=== PATIENT | male | born 1955 | race Caucasian/White ===

== ENCOUNTER 2019-02-21 05:25 | Day surgery (SDC) | payer OTHER ==
[~2019-02-21] VITALS: Ht 165.1 cm; Wt 71.9 kg
[2019-02-21] VITALS (12 sets, daily range): BP systolic 116–150; BP diastolic 69–97; PULSE 48–62; RESP 16–25; Ht 165.1 cm; Wt 71.9 kg
[2019-02-21] MEDS ORDERED: ASPI81TA52 PO (06:56)
[2019-02-21] MEDS ORDERED: LISI-313 PO (06:56)
[2019-02-21] MEDS ORDERED: ATOR-2 PO (06:57)
[2019-02-21] MEDS ORDERED: METO-448 PO (06:57)
[2019-02-21] MEDS ORDERED: SOD CHLORIDE 0.45% 1,000 ML IV ONE (07:00)
[2019-02-21] MEDS ORDERED: DIAZEPAM 5 MG TAB PO ONE (07:00)
[2019-02-21] MEDS ORDERED: DIPHENHYDRAMINE 50 MG CAP PO ONE (07:00)
[2019-02-21] MEDS ORDERED: POLYMYXIN/BACITRACIN 1L IRRIG ONE (07:05)
[2019-02-21] MEDS ORDERED: CEFAZOLIN 2 GM/50 ML (PMX) 50 ML IVPB ONE (07:05)
[2019-02-21] MEDS ORDERED: MIDAZOLAM 1 MG/ML 2 ML INJ ONE (07:22)
[2019-02-21] MEDS ORDERED: LIDOCAINE 1% (MDV) 20 ML INJ ONE (07:22)
[2019-02-21] MEDS ORDERED: FENTAnyl 50 MCG/ML VIAL ONE ×2 (07:22→07:45)
[2019-02-21] MEDS ORDERED: IOHEXOL 350MG/ML 50 ML BTL ONE (07:26)
--- NOTE | 2019-02-21 07:35 | PREAC ---
Date/Time of Note Date/Time of Note DATE: 02/21/19 TIME: 07:33 Anesthesia Eval and Record Evaluation Time Pre-Procedure Interview DATE: 02/21/19 TIME: 07:33 Age 63 Sex male NPO: 8 hrs Preoperative diagnosis cardiomyopathy Planned procedure AICD placement Past Medical History Past Medical History: Includes Cardio: HTN, Dyslipidemia, [place], PTCA/Stent Surgery & Anesthesia Issues No known issue Meds Anticoagulation: Yes Beta Doris within 24 hr: Yes Reported Medications Atorvastatin* (Atorvastatin*) 80 Mg Tablet, 80 MG PO QHS, #30 TAB 02/21/19 Metoprolol Tartrate* (Lopressor*) 25 Mg Tab, 25 MG PO BID, #60 TAB 02/21/19 Lisinopril* (Lisinopril*) 5 Mg Tablet, 5 MG PO DAILY, #30 TAB 02/21/19 Aspirin (Low Dose Aspirin) 81 Mg Tablet.dr, 81 MG PO DAILY, #30 TAB 02/21/19 Current Medications Sodium Chloride 1,000 ml @ 75 mls/hr [id number] ONCE IV ; Start 02/21/19 at 07:00; Stop 02/21/19 at 20:19 Meds reviewed: Yes Allergies Coded Allergies: No Known Allergies (Verified Allergy, Unknown, 02/21/19) Allergies Reviewed: Yes Labs/Studies Labs Reviewed: Reviewed by anesthesiologist test: N/A Studies: ECG (sr), CXR (n/a) Pre-procedure Exam Airway: Adequate mouth opening Mallampati: Mallampati I Teeth: Normal Lung: Normal Heart: Normal ASA Physical Status ASA physical status: 2 Emergency: None Planned Anesthetic General/MAC: MAC, TIVA Pre-operative Attestations Prior to commencing anesthesia and surgery, the patient was re-evaluated, there was verification of: *The patient's identity *The results of appropriate recent lab work and preoperative vital signs *The above evaluation not changing prior to induction *Anesthetic plan, risk benefits, alternative and complications discussed with patient/family; questions answered; patient/family understands, accepts and wishes to proceed. LIO CARMONA MD February 21, 2019 07:35
[2019-02-21] MEDS ORDERED: PROPOFOL 0 ML ONE (07:45)
[2019-02-21] MEDS ORDERED: DIPHENHYDRAMINE 50 MG INJ IV PRN (08:00)
[2019-02-21] MEDS ORDERED: HYDROmorphONE 1 MG/5 ML IV SYRINGE IV PRN ×3 (08:00)
[2019-02-21] MEDS ORDERED: LABETALOL HCL 20MG INJ IV PRN (08:00)
[2019-02-21] MEDS ORDERED: hydrALAzine 20 MG INJ IV PRN (08:00)
[2019-02-21] MEDS ORDERED: ONDANSETRON 4 MG INJ IV PRN (08:00)
[2019-02-21] MEDS ORDERED: FENTAnyl 50 MCG/ML VIAL IV PRN ×3 (08:00)
[2019-02-21] MEDS ORDERED: MEPERIDINE 25 MG INJ IV PRN (08:00)
[2019-02-21] MEDS ORDERED: OXYCODONE/ACETAMINOPHEN (5/325) TAB PO PRN ×2 (08:00)
[2019-02-21] MEDS ORDERED: PROPOFOL 20 ML ONE (09:01)
--- NOTE | 2019-02-21 09:07 | SIPON ---
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
[2019-02-21] MEDS ORDERED: ASPIRIN (EC) 81 MG TAB PO SCH (09:30)
--- NOTE | 2019-02-21 11:31 | OPR ---
DATE OF OPERATION: 02/21/2019 PREOPERATIVE DIAGNOSIS: Cardiomyopathy. POSTOPERATIVE DIAGNOSIS: Cardiomyopathy. PROCEDURES PERFORMED: Single chamber implantable cardioverter defibrillator. DESCRIPTION OF PROCEDURE: The patient was brought to the catheterization laboratory in a fasting sta te. Informed consent was signed for the procedure and sedation. Left pectoral region was prepped an d draped in the usual fashion. The patient received antibiotics prior to skin incision. Under the left clavicle, 1% lidocaine was infused. A 4 cm incision was made using a #15 scalpel blade. Using combination of blunt dissection and electr ocautery, an ICD pocket was formed. Venous access was obtained using the axillary approach under fluoroscopic guidance. A 9 [place] peel away sheath was inserted over a wire into the left subclavian vein. A single coil Medtronic ICD lead was placed through the sheath to the lower RV septum and screwed int o place where excellent sensing and pacing characteristics were confirmed. The sheath was split and the lead was sutured to the fascia using 0 silk nonresorbable sutures. The lead was attached to the Medtronic defibrillator and inserted into the pocket. A defibrillator w as sutured to the fascia. Pocket was irrigated with antibiotic solution. Pocket was closed in layer s using 2-0 and 4-0 absorbable sutures. Surgical adhesive was applied to the skin. Serial number mi nute Medtronic, serial number [id number] single chamber defibrillator. Dictated By: GET [place]/DAVONTE Conf#: [id number] DID#: [id number]
--- NOTE | 2019-02-21 12:52 | PAC ---
Date/Time of Note Date/Time of Note DATE: 02/21/19 TIME: 12:51 Post-Anesthesia Notes Post-Anesthesia Note Last documented vital signs Vital Signs Date Temp Pulse Resp B/P (MAP) Pulse Ox O2 O2 Flow FiO2 Time Delivery Rate 02/21/19 97.8 52 24 135/80 99 Room Air 10:01 (98) 02/21/19 97.9 09:21 Activity: WNL Respiratory function: WNL Cardiovascular function: WNL Mental status: Baseline Pain reasonably controlled: Yes Hydration appropriate: Yes Nausea/Vomiting absent: No LIO CARMONA MD February 21, 2019 12:52
[2019-02-21] MEDS ORDERED: METOPROLOL 25 MG TAB PO SCH (21:00)
[2019-02-21] MEDS ORDERED: ATORVASTATIN 80 MG TAB PO SCH (21:00)
[2019-02-22] MEDS ORDERED: LISINOPRIL 5 MG TAB PO SCH (09:00)
== END 2019-02-21 13:01 | disposition home or self-care (01) ==
LOC: SDS 05:25 → CCL 05:25
PROVIDERS: ATTEND Internal Medicine Cardiovascular Disease
DX: I25.5 Ischemic cardiomyopathy (principal); I25.10 Atherosclerotic heart disease of native coronary artery without angina pectoris; I25.2 Old myocardial infarction; I10 Essential (primary) hypertension; Z79.82 Long term (current) use of aspirin
CPT/HCPCS: 33249; 71045; C1777; C1882; J0690; J2250; J3010; Q9967; Z7610